=== PATIENT | female | born 1985 | race Caucasian/White ===

== ENCOUNTER → 2021-01-29 | Outpatient (CLI) | payer OTHER ==
--- NOTE | 2021-01-29 14:01 | RAD ---
EXAM: Pelvic sonogram. HISTORY: Left ovarian cyst follow-up. TECHNIQUE: Sonographic imaging of the pelvis was performed. COMPARISON: None. FINDINGS: The uterus measures 10.2 x 7.1 x 5.0 cm. The endometrial stripe measures 10 mm in thickness . There is a hypoechoic lesion with internal blood flow within the anterior uterine fundus measuring 1.7 cm, likely a small uterine fibroid. The ovaries are normal in size and demonstrate normal blood f low. There are small bilateral ovarian antral follicles. No adnexal mass or cyst is seen. The bladder is unremarkable. IMPRESSION: 1. Suspected small uterine fibroid. 2. Normal endometrial stripe thickness for a premenopausal female. 3. Normal appearing ovaries. No ovarian cyst is seen. Electronically signed by: Deysi Mendoza MD (01/29/2021 1:58 PM) [id number]
== END ==
LOC: US 13:01
PROVIDERS: ATTEND Obstetrics & Gynecology
DX: N83.292 Other ovarian cyst, left side (principal)
CPT/HCPCS: 76856